=== PATIENT | female | born 1980 | race American Indian/Alaskan Native ===

== ENCOUNTER 2016-05-28 09:59 | Emergency (ER) | payer BC ==
[2016-05-28 10:09] VITALS: BP 137/100
== END 2016-05-28 13:15 | disposition left against medical advice (07) ==
LOC: ED 09:59
DX: Z76.0 Encounter for issue of repeat prescription (principal); R51 Headache; Z53.21 Procedure and treatment not carried out due to patient leaving prior to being seen by health care provider

== ENCOUNTER 2016-06-13 10:47 | Emergency (ER) | payer BC ==
[2016-06-13] MEDS ORDERED: DUONEB 0.5 MG-3 MG/3 ML SOLN IH ONE ×2 (11:16→22:34)
[2016-06-13] MEDS ORDERED: DECADRON IM ONE (11:17)
--- NOTE | 2016-06-13 11:23 | Emergency Department Report ---
Chief Complaint: Upper Respiratory Infection Stated Complaint: ASTHMA/BRYAN/COUGH/CHEST PAIN Time Seen by Provider: 06/13/16 11:06 - HPI History of Present Illness: 35-year-old female presents today with wheezing, chest pain, body aches and shortness of breath. Positive for history of asthma. Patient states that it all started as a cough 3 days ago. Patient states that [id number] has cough and cold symptoms. Tried Claritin, Flonase, albuterol without relief. Denies fever, chills, nausea, vomiting, abdominal pain. She has hypertension but has been out of her blood pressure medication for 1 week. - ROS Review of Systems: Per HPI - Exam Vital Signs: Vital Signs 06/13/16 10:56 Temperature 98.8 F Pulse Rate 111 H Respiratory 20 Rate Blood Pressure 146/103 O2 Sat by Pulse 96 Oximetry Physical Exam: General: 35-year-old female in no acute distress. Well-developed, well- nourished. CV: Tachycardic. Regular rhythm. Lungs: Positive for expiratory wheezing bilaterally. Abdomen: No tenderness to palpation. No guarding or rebound tenderness. MSE screening note: Focused history and physical exam performed. Due to findings the following was ordered: ED Disposition for MSE Condition: Stable
[2016-06-13 11:52] LABS: Basophils % (Auto) 0.6 % (0.0-1.8); Eosinophils % (Auto) 2.5 % (0.0-4.3); Hematocrit 41.3 % (30.3-42.9); Hemoglobin 13.7 gm/dl (10.1-14.3); Mean Corpuscular HGB Conc 33 % (30-34); Mean Corpuscular Hemoglobin 30 pg (28-32); Mean Corpuscular Volume 91 fl (79-97); Platelet Count 285 K/mm3 (140-440); Red Blood Count 4.52 M/mm3 (3.65-5.03); Red Cell Distribution Width 13.2 % (13.2-15.2); White Blood Count 5.4 K/mm3 (4.5-11.0)
--- NOTE | 2016-06-13 11:52 | XRay Report ---
ROUTINE CHEST, TWO VIEWS: PA and lateral views demonstrate the heart and mediastinal contour to be of normal size and shape. The lungs are clear and fully expanded and the soft tissues and bony structures are normal. IMPRESSION: Normal study.
[2016-06-13 12:08] LABS: Anion Gap 19 mmol/L; BUN/Creatinine Ratio 11.42; Blood Urea Nitrogen 8 mg/dL (7-17); Calcium 9.3 mg/dL (8.4-10.2); Carbon Dioxide 26 mmol/L (22-30); Chloride 100.8 mmol/L (98-107); Glucose 90 mg/dL (65-100); Potassium 3.5 mmol/L (3.6-5.0); Sodium 142 mmol/L (137-145)
[2016-06-13 12:10] LABS: Creatine Kinase 174 units/L (30-135); Creatine Kinase MB 1.4 ng/mL (0.0-4.0)
[2016-06-13] MEDS ORDERED: DELTASONE PO ONE ×2 (13:25)
[2016-06-13] MEDS ORDERED: DELTASONE ONE (13:25)
[2016-06-13 22:02] VITALS: BP 120/84
--- NOTE | 2016-06-13 22:43 | Emergency Department Report ---
- General Chief Complaint: Upper Respiratory Infection Stated Complaint: ASTHMA/BRYAN/COUGH/CHEST PAIN Time Seen by Provider: 06/13/16 11:06 Source: patient Mode of arrival: Ambulatory Limitations: No Limitations - History of Present Illness Initial Comments: 35 year old female the past medical history hypertension and asthma presents to the hospital complains of cough, cold, and chills for the past 3-4 days. Patient states that 3-year-old has similar symptoms. Cough is non-productive. No documented fever but positive chills. Increased episodes of wheezing shortness of breath reported. Aching mild to moderate anterior chest pain reported worse with coughing. Using her home nebs and albuterol intermittently with temporary relief. Patient did not have a flu shot this year. Patient noncompliant with her BP meds 1 week. - Related Data Home Medications Medication Instructions Recorded Confirmed Last Taken Albuterol Sulfate [Ventolin HFA] 2 puff IH Q4H PRN 06/13/16 06/13/16 06/13/16 Fluticasone [Flonase] 1 spray NS QDAY 06/13/16 06/13/16 06/12/16 Loratadine [Claritin] 10 mg PO DAILY 06/13/16 06/13/16 06/12/16 Previous Rx's Medication Instructions Recorded Last Taken Type ALBUTEROL NEB's [Proventil 0.083% 2.5 mg IH TID PRN #30 neb 06/13/16 Unknown Rx NEBS] Azithromycin [Zithromax Z-RITA] 1 dose PO DAILY 5 Days 06/13/16 Unknown Rx Benzonatate [Tessalon Perles] 100 mg PO Q8HR PRN #20 capsule 06/13/16 Unknown Rx Budesonide [Pulmicort Flexhaler] 2 inhalation IH BID #1 aer.pow.ba 06/13/16 Unknown Rx Lisinopril [Zestril TAB] 20 mg PO QDAY #30 tablet 06/13/16 Unknown Rx Prednisone [predniSONE 10 mg 10 mg PO .TAPER #1 tab.ds.pk 06/13/16 Unknown Rx (6-Day Pack, 21 Tabs)] Allergies Allergy/AdvReac Type Severity Reaction Status Date / Time No Known Allergies Allergy Unverified 06/13/16 10:55 ED Review of Systems ROS: Stated complaint: ASTHMA/BRYAN/COUGH/CHEST PAIN Other details as noted in HPI Comment: All other systems reviewed and negative Other: Constitutional: as per hpi Eyes: No eye pain visual changes ENT: No ear pain or throat pain Neck: Denies pain Respiratory: as per hpi Cardiovascular: as per hpi GI: Denies abdominal pain, nausea, vomiting, diarrhea : Denies dysuria Musculoskeletal: Denies back pain Skin: Denies rash, lesions, erythema Neurologic: Denies headache, numbness, weakness Psychiatric: Denies suicidal ideation, hallucinations ED Past Medical Hx - Past Medical History Previous Medical History?: Yes Hx Hypertension: Yes Hx Asthma: Yes - Surgical History Past Surgical History?: No - Social History Smoking Status: Current Every Day Smoker Substance Use Type: Alcohol, Non Opiate Pain, Prescribed - Medications Home Medications: Home Medications Medication Instructions Recorded Confirmed Last Taken Type ALBUTEROL NEB's [Proventil 0.083% 2.5 mg IH TID PRN #30 neb 06/13/16 Unknown Rx NEBS] Albuterol Sulfate [Ventolin HFA] 2 puff IH Q4H PRN 06/13/16 06/13/16 06/13/16 History Azithromycin [Zithromax Z-RITA] 1 dose PO DAILY 5 Days 06/13/16 Unknown Rx Benzonatate [Tessalon Perles] 100 mg PO Q8HR PRN #20 capsule 06/13/16 Unknown Rx Budesonide [Pulmicort Flexhaler] 2 inhalation IH BID #1 aer.pow.ba 06/13/16 Unknown Rx Fluticasone [Flonase] 1 spray NS QDAY 06/13/16 06/13/16 06/12/16 History Lisinopril [Zestril TAB] 20 mg PO QDAY #30 tablet 06/13/16 Unknown Rx Loratadine [Claritin] 10 mg PO DAILY 06/13/16 06/13/16 06/12/16 History Prednisone [predniSONE 10 mg 10 mg PO .TAPER #1 tab.ds.pk 06/13/16 Unknown Rx (6-Day Pack, 21 Tabs)] ED Physical Exam - General Limitations: No Limitations - Other Other exam information: General: No limitations, patient is alert in no acute distress Head exam: Atraumatic, normocephalic Eyes exam: Normal appearance, pupils equal reactive to light, extraocular movements intact ENT: Moist mucous membrane, normal oropharynx Neck exam: Normal inspection, full range of motion, no meningismus nontender Respiratory exam: Minimal expiratory wheeze, no tachypnea or accessory muscle use Cardiovascular: Normal rate and rhythm Abdomen: Soft, nondistended, and nontender, with normal bowel sounds, no rebound, or guarding Extremity: Full range of motion normal inspection no deformity Back: Normal Inspection, full range of motion, no tenderness Neurologic: Alert, oriented x3, cranial nerves intact, no motor or sensory deficit Psychiatric: normal affect, normal mood Skin: Warm, dry, intact ED Course Vital Signs 06/13/16 06/13/16 10:56 22:01 Temperature 98.8 F 98.4 F Pulse Rate 111 H 81 Respiratory 20 12 Rate Blood Pressure 146/103 Blood Pressure 120/84 [Left] O2 Sat by Pulse 96 99 Oximetry - Reevaluation(s) Reevaluation #1: 06/13/16 22:43 Patient states that her breathing has improved since receiving prednisone and duo neb prior to my evaluation but coughing persists now productive since receiving treatment and prednisone. ED Medical Decision Making - Lab Data Result diagrams: 06/13/16 11:35 06/13/16 11:35 Lab Results 06/13/16 06/13/16 06/13/16 Range/Units 11:35 11:35 11:35 WBC 5.4 (4.5-11.0) K/mm3 RBC 4.52 (3.65-5.03) M/mm3 Hgb 13.7 (10.1-14.3) gm/dl Hct 41.3 (30.3-42.9) % MCV 91 (79-97) fl MCH 30 (28-32) pg MCHC 33 (30-34) % RDW 13.2 (13.2-15.2) % Plt Count 285 (140-440) K/mm3 Lymph % (Auto) 25.4 (13.4-35.0) % [place] % (Auto) 14.3 H (0.0-7.3) % Eos % (Auto) 2.5 (0.0-4.3) % Baso % (Auto) 0.6 (0.0-1.8) % Lymph # 1.4 (1.2-5.4) K/mm3 [place] # 0.8 (0.0-0.8) K/mm3 Eos # 0.1 (0.0-0.4) K/mm3 Baso # 0.0 (0.0-0.1) K/mm3 Seg Neutrophils % 57.2 (40.0-70.0) % Seg Neutrophils # 3.1 (1.8-7.7) K/mm3 Carbon Dioxide 26 (22-30) mmol/L BUN 8 (7-17) mg/dL Creatinine 0.7 (0.7-1.2) mg/dL Estimated GFR > 60 ml/min BUN/Creatinine Ratio 11.42 % Glucose 90 (65-100) mg/dL Calcium 9.3 (8.4-10.2) mg/dL Total Creatine Kinase 174 H (30-135) units/L CK-MB (CK-2) 1.4 (0.0-4.0) ng/mL CK-MB (CK-2) Rel Index 0.8 (0-4) Troponin T < 0.010 (0.00-0.029) ng/mL Sodium 142, potassium 3.5, chloride 100.8, anion gap 19 - EKG Data -: EKG Interpreted by Me (sinus tach at [address] elevation T-wave inversion) - EKG Data When compared to previous EKG there are: previous EKG unavailable - Radiology Data Radiology results: report reviewed (chest x-ray: No acute findings) - Medical Decision Making Flu test negative. Patient's symptoms have improved the patient on acute distress. Patient will be treated with azithromycin for acute bronchitis and given meds for acute asthma exacerbation. Patient's requesting Pulmicort since she has taken in the past as well. Follow-up with a primary care doctor will be encouraged. Refill of bp med will be given as requested. BP improved in ED without treatment - Differential Diagnosis bronchitis, asthma, pneumonia, viral syndrome, influenza Critical Care Time: No Critical care attestation.: If time is entered above; I have spent that time in minutes in the direct care of this critically ill patient, excluding procedure time. ED Disposition Clinical Impression: Acute bronchitis with asthma, Viral syndrome, HTN (hypertension) Disposition: DISCHARGED TO HOME OR SELFCARE Is pt being admited?: No Does the pt Need Aspirin: No Condition: Stable Instructions: Acute Bronchitis (ED), Viral Syndrome (ED) Additional Instructions: Take the medication as prescribed. Return if symptoms worsen. Prescriptions: ALBUTEROL NEB's [Proventil 0.083% NEBS] 2.5 mg IH TID PRN #30 neb PRN Reason: Wheezing Azithromycin [Zithromax Z-RITA] 1 dose PO DAILY 5 Days Benzonatate [Tessalon Perles] 100 mg PO Q8HR PRN #20 capsule PRN Reason: Cough Budesonide [Pulmicort Flexhaler] 2 inhalation IH BID #1 aer.pow.ba Lisinopril [Zestril TAB] 20 mg PO QDAY #30 tablet Prednisone [predniSONE 10 mg (6-Day Pack, 21 Tabs)] 10 mg PO .TAPER #1 tab.ds.pk Referrals: TONY JUNG MD [Staff Physician] - 3-5 Days PRIMARY CARE, [Primary Care Provider] - 3-5 Days Time of Disposition: 23:32
== END 2016-06-13 23:51 | disposition home or self-care (01) ==
LOC: ED 10:47
DX: J20.9 Acute bronchitis, unspecified (principal); J45.909 Unspecified asthma, uncomplicated; B34.9 Viral infection, unspecified; I10 Essential (primary) hypertension; F17.200 Nicotine dependence, unspecified, uncomplicated
CPT/HCPCS: 36415; 71020; 80048; 82550; 82553; 84484; 85025; 87400; 93005; 93010; 94640; 99284; J7512